=== PATIENT | female | born 1930 | race Caucasian/White ===

== ENCOUNTER 2019-03-30 11:27 | Inpatient (IN) | payer OTHER ==
[~2019-03-30] VITALS: Ht 162.6 cm; Wt 71.7 kg
[2019-03-30 13:06] LABS: CALCIUM 9.1 mg/dL (8.5-10.1); CARBON DIOXIDE 29.2 mmol/L (21-32); CHLORIDE SERUM 103 mmol/L (98-107); CREATININE SERUM 0.8 mg/dL (0.6-1.0); GLUCOSE SERUM 121 mg/dL (74-106); POTASSIUM SERUM 4.3 mmol/L (3.5-5.1); SODIUM SERUM 141 mmol/L (136-145)
[2019-03-30 13:10] LABS: ALBUMIN 3.4 g/dL (3.4-5.0); ALKALINE PHOSPHATASE 103 U/L (46-116); ALT/SGPT 30 U/L (14-59); AST/SGOT 67 U/L (15-37); BILIRUBIN TOTAL 1.2 mg/dL (0.20-1.00); TOTAL PROTEIN, SERUM 7.5 g/dL (6.4-8.2)
[2019-03-30 13:17] LABS: BASOPHIL % 0.3 % (0-2); PLATELET COUNT 240 x10^3mcL (130-400); RED CELL DISTRIBUTION WIDTH 12.5 % (11.5-14.5)
[2019-03-30 13:34] LABS: UA SPECIFIC GRAVITY 1.025 (1.005-1.035); microscopic required? YES; urine erythrocyte 2+ (NEGATIVE)
[2019-03-30 17:28] VITALS: BP 114/61
[2019-03-30 17:57] VITALS: BP 114/61
[2019-03-30 18:17] LABS: ALKALINE PHOSPHATASE 96 U/L (46-116); ALT/SGPT 30 U/L (14-59); AST/SGOT 73 U/L (15-37); BILIRUBIN TOTAL 1.1 mg/dL (0.20-1.00); CALCIUM 8.8 mg/dL (8.5-10.1); CHLORIDE SERUM 104 mmol/L (98-107); CREATININE SERUM 0.8 mg/dL (0.6-1.0); GLUCOSE SERUM 111 mg/dL (74-106); POTASSIUM SERUM 4.3 mmol/L (3.5-5.1); SODIUM SERUM 143 mmol/L (136-145); TOTAL PROTEIN, SERUM 7.1 g/dL (6.4-8.2)
[2019-03-30 18:19] LABS: ALBUMIN 3.2 g/dL (3.4-5.0)
[2019-03-30 20:00] VITALS: BP 101/57
[2019-03-31 00:15] LABS: CALCIUM 8.1 mg/dL (8.5-10.1); CARBON DIOXIDE 26.1 mmol/L (21-32); CHLORIDE SERUM 106 mmol/L (98-107); CREATININE SERUM 0.9 mg/dL (0.6-1.0); GLUCOSE SERUM 117 mg/dL (74-106); POTASSIUM SERUM 4.4 mmol/L (3.5-5.1); SODIUM SERUM 142 mmol/L (136-145)
[2019-03-31 00:19] LABS: ALKALINE PHOSPHATASE 83 U/L (46-116); ALT/SGPT 33 U/L (14-59); AST/SGOT 76 U/L (15-37); TOTAL PROTEIN, SERUM 6.3 g/dL (6.4-8.2)
[2019-03-31 00:20] LABS: ALBUMIN 2.8 g/dL (3.4-5.0)
[2019-03-31 04:01] LABS: UA SPECIFIC GRAVITY >=1.030 (1.005-1.035); microscopic required? YES; urine erythrocyte 1+ (NEGATIVE)
[2019-03-31 05:37] VITALS: BP 112/53
[2019-03-31 09:05] VITALS: BP 102/50
[2019-03-31 13:45] VITALS: BP 112/51
[2019-03-31 15:58] LABS: PLATELET COUNT 184 x10^3mcL (130-400); RED CELL DISTRIBUTION WIDTH 13.1 % (11.5-14.5)
[2019-03-31 16:04] LABS: BASOPHIL % 0 % (0-2)
[2019-03-31 16:07] LABS: ALKALINE PHOSPHATASE 78 U/L (46-116); ALT/SGPT 32 U/L (14-59); AST/SGOT 66 U/L (15-37); BILIRUBIN TOTAL 0.5 mg/dL (0.20-1.00); CALCIUM 7.8 mg/dL (8.5-10.1); CARBON DIOXIDE 26.4 mmol/L (21-32); CHLORIDE SERUM 107 mmol/L (98-107); CREATININE SERUM 0.9 mg/dL (0.6-1.0); GLUCOSE SERUM 129 mg/dL (74-106); POTASSIUM SERUM 3.8 mmol/L (3.5-5.1); SODIUM SERUM 141 mmol/L (136-145)
[2019-03-31 16:09] LABS: ALBUMIN 2.6 g/dL (3.4-5.0)
[2019-03-31 17:37] VITALS: BP 133/61
[2019-03-31 21:10] VITALS: BP 116/58
[2019-04-01 05:11] VITALS: BP 127/59
[2019-04-01 08:15] VITALS: BP 135/76
[2019-04-01 10:51] VITALS: Ht 162.6 cm; Wt 71.7 kg
[2019-04-01 12:03] VITALS: BP 141/65
[2019-04-01 16:37] VITALS: BP 125/69
[2019-04-01 17:24] LABS: BASOPHIL % 0.4 % (0-2); PLATELET COUNT 226 x10^3mcL (130-400); RED CELL DISTRIBUTION WIDTH 12.8 % (11.5-14.5)
[2019-04-01 17:33] LABS: ALKALINE PHOSPHATASE 127 U/L (46-116); ALT/SGPT 73 U/L (14-59); AST/SGOT 77 U/L (15-37); BILIRUBIN TOTAL 0.5 mg/dL (0.20-1.00); CALCIUM 8.3 mg/dL (8.5-10.1); CARBON DIOXIDE 27.6 mmol/L (21-32); CHLORIDE SERUM 107 mmol/L (98-107); CREATININE SERUM 0.8 mg/dL (0.6-1.0); GLUCOSE SERUM 123 mg/dL (74-106); SODIUM SERUM 141 mmol/L (136-145); TOTAL PROTEIN, SERUM 6.9 g/dL (6.4-8.2)
[2019-04-01 17:34] LABS: ALBUMIN 2.8 g/dL (3.4-5.0)
[2019-04-01 20:32] VITALS: BP 134/67
[2019-04-02 06:00] VITALS: BP 160/84
[2019-04-02 08:37] VITALS: BP 150/69
[2019-04-02 12:30] VITALS: BP 141/72
[2019-04-02 16:44] LABS: BASOPHIL % 0.4 % (0-2); PLATELET COUNT 202 x10^3mcL (130-400); RED CELL DISTRIBUTION WIDTH 12.4 % (11.5-14.5)
[2019-04-02 17:10] VITALS: BP 131/71
[2019-04-02 17:15] LABS: ALKALINE PHOSPHATASE 106 U/L (46-116); ALT/SGPT 53 U/L (14-59); AST/SGOT 44 U/L (15-37); BILIRUBIN TOTAL 0.3 mg/dL (0.20-1.00); CALCIUM 8.1 mg/dL (8.5-10.1); CARBON DIOXIDE 28.8 mmol/L (21-32); CHLORIDE SERUM 109 mmol/L (98-107); CREATININE SERUM 0.7 mg/dL (0.6-1.0); GLUCOSE SERUM 119 mg/dL (74-106); POTASSIUM SERUM 4.6 mmol/L (3.5-5.1); SODIUM SERUM 142 mmol/L (136-145); TOTAL PROTEIN, SERUM 6.2 g/dL (6.4-8.2)
[2019-04-02 17:18] LABS: ALBUMIN 2.5 g/dL (3.4-5.0)
== END 2019-04-02 20:20 | DRG 557 ==
LOC: ED 11:27 → DU 16:13
PROVIDERS: Emergency Medicine; ADMIT Hospitalist
DX: M62.82 Rhabdomyolysis (principal); G93.41 Metabolic encephalopathy; N39.0 Urinary tract infection, site not specified; I10 Essential (primary) hypertension; E86.0 Dehydration; R26.81 Unsteadiness on feet; F03.90 Unspecified dementia, unspecified severity, without behavioral disturbance, psychotic disturbance, mood disturbance, and anxiety; E11.9 Type 2 diabetes mellitus without complications; E78.5 Hyperlipidemia, unspecified; Z60.2 Problems related to living alone; Z68.25 Body mass index [BMI] 25.0-25.9, adult
CPT/HCPCS: 84439; 90715; 90732; 97110-GP; 97112-GP; 97530-GP; G0378; G0480; J0696; J1630; J7030; J7040